=== PATIENT | female | born 1995 | race African-American/Black ===

== ENCOUNTER 2019-06-07 16:27 | Emergency (ER) | payer OTHER ==
[~2019-06-07] VITALS: Ht 162.6 cm; Wt 101.6 kg
[~2019-06-07 16:27] MED LIST: NAPROSYN500 MG PO; NORCO 5-325 TA1 EACH PO; NORFLEX100 MG PO; ULTRAM 50MG TAB50 MG PO
[2019-06-07 17:18] LABS: ABSOLUTE EOSINOPHILS 0.1 thou/uL (0.0-0.7); ABSOLUTE LYMPHOCYTES 4.5 thou/uL (0.8-5.3); ABSOLUTE MONOCYTES 0.6 thou/uL (0.0-1.2); ABSOLUTE NEUTROPHILS 5.6 thou/uL (1.6-8.1); BASOPHILS 0.3 %; EOSINOPHILS 1.1 %; HEMATOCRIT 40.3 % (37.0-47.0); HEMOGLOBIN 13.6 gm/dL (12.0-15.0); LYMPHOCYTES 41.7 %; MCH 28.2 pg (26.0-34.0); MCHC 33.7 g/dL (28.0-37.0); MCV 83.5 fL (80.0-100.0); MONOCYTES 5.3 %; MPV 6.8 fl. (7.2-11.1); NUCLEATED RBCS 0 /100WBC; PLATELET COUNT* 435 thou/uL (150-400); POLYS 51.6 %; RBC 4.82 mil/uL (4.20-5.00); RDW-CV 14.8 % (10.5-14.5); WBC 10.8 thou/uL (4.0-11.0)
[2019-06-07 17:21] LABS: URINE BILIRUBIN NEGATIVE (Negative); URINE BLOOD 2+ (Negative); URINE CLARITY CLEAR; URINE COLOR YELLOW; URINE GLUCOSE-RANDOM NEGATIVE (Negative); URINE KETONES NEGATIVE (Negative); URINE LEUKOCYTES-REFLEX NEGATIVE (Negative); URINE NITRITE-REFLEX NEGATIVE (Negative); URINE PROTEIN NEGATIVE (Negative); URINE SPECIFIC GRAVITY 1.025 (1.005-1.030); URINE UROBILINOGEN 0.2 E.U./dl (0.2-1.0)
[2019-06-07 17:23] LABS: CALCIUM 9.1 mg/dL (8.5-10.1); CREATININE 0.9 mg/dL (0.6-1.3); POTASSIUM 3.7 mmol/L (3.5-5.1)
[2019-06-07 17:27] LABS: BACTERIA-REFLEX None Seen /HPF (None Seen); CASTS None Seen /LPF (None Seen); CRYSTALS None Seen /LPF (None Seen); MUCUS 0-3 Light strn/LPF (None Seen); SQUAMOUS >10 Many /LPF (0-3); URINE RBC 0-2 Rare /HPF (0-2); URINE WBC-REFLEX None Seen /HPF (0-5)
[2019-06-07 17:28] LABS: ALBUMIN 3.8 g/dL (3.4-5.0); TOTAL BILIRUBIN 0.2 mg/dL (<0.1-1.0); TOTAL PROTEIN 8.7 g/dL (6.4-8.2)
[2019-06-07] MEDS ORDERED: ONDANSETRON ODT4 MG PO (20:22)
[2019-06-07] MEDS ORDERED: TYLENOL WITH CO1 TA1 PO (20:22)
[2019-06-07 20:31] VITALS: BP 117/51
== END 2019-06-07 20:32 | disposition home or self-care (01) ==
LOC: M.ERS 16:27
PROVIDERS: Physician Assistant
DX: N83.202 Unspecified ovarian cyst, left side (principal); K76.9 Liver disease, unspecified; R11.2 Nausea with vomiting, unspecified; Z91.013 Allergy to seafood

== ENCOUNTER 2020-01-12 10:46 | Emergency (ER) | payer OTHER ==
[~2020-01-12] VITALS: Ht 162.6 cm; Wt 111.1 kg
[~2020-01-12 10:46] MED LIST changes: +ONDANSETRON ODT4 MG PO; +TYLENOL WITH CO1 TA1 PO
[2020-01-12] MEDS ORDERED: CYCLOBENZAPRINE5 MG PO (12:19)
[2020-01-12] MEDS ORDERED: MEDROLDOSEPACK PO (12:19)
[2020-01-12] MEDS ORDERED: HYDROCODON-ACE1 EAC7 PO (12:19)
[2020-01-12 12:32] VITALS: BP 126/72
== END 2020-01-12 12:32 | disposition home or self-care (01) ==
LOC: M.ERS 10:46
DX: S33.5XXA Sprain of ligaments of lumbar spine, initial encounter (principal); M54.6 Pain in thoracic spine; E66.01 Morbid (severe) obesity due to excess calories; Z68.41 Body mass index [BMI] 40.0-44.9, adult; Z91.013 Allergy to seafood; X50.1XXA Overexertion from prolonged static or awkward postures, initial encounter; Y93.89 Activity, other specified; Y92.89 Other specified places as the place of occurrence of the external cause; Y99.8 Other external cause status